=== PATIENT | male | born 1955 | race Caucasian/White ===

== ENCOUNTER 2023-06-04 09:24 | Day surgery (SDC) | payer OTHER ==
[~2023-06-04] VITALS: Ht 177.8 cm; Wt 113.4 kg
[~2023-06-04 09:24] MED LIST: ASPIRINCHW 81MG PO; ATORVASTATIN CA20 MG PO; CLOTRIMAZOLE13 EX; HYDROCHLOROT12.5 M1 PO; LISINOPRIL10 MG PO; NORVASC PO; OMEPRAZOLE DR20 MG; TAMSULOSIN HCL0.4 MG PO; TOPROL XL25 M1 PO; VENTOLIN HFA108 MCG
[2023-06-04 11:49] VITALS: BP 120/76
== END 2023-06-04 12:18 | disposition designated cancer center or children's hospital (05) | DRG 392 ==
LOC: ORM 09:24
PROVIDERS: ATTEND Surgery
PROC: 0DB48ZX Excision of Esophagogastric Junction, Via Natural or Artificial Opening Endoscopic, Diagnostic (ICD-10-PCS; principal; 2023-06-04)
PROC: 0DBL8ZX Excision of Transverse Colon, Via Natural or Artificial Opening Endoscopic, Diagnostic (ICD-10-PCS; 2023-06-04)
DX: K21.00 Gastro-esophageal reflux disease with esophagitis, without bleeding (principal); Z12.11 Encounter for screening for malignant neoplasm of colon; D12.3 Benign neoplasm of transverse colon; K64.8 Other hemorrhoids; I10 Essential (primary) hypertension; I25.2 Old myocardial infarction; E78.00 Pure hypercholesterolemia, unspecified; Z86.010 Personal history of colon polyps